=== PATIENT | female | born 1960 | race Caucasian/White ===

== ENCOUNTER 2016-12-11 08:55 | Emergency (ER) | payer OTHER ==
[2016-12-11 09:00] VITALS: RESP 18
--- NOTE | 2016-12-11 10:28 | XR ---
EXAMINATION TYPE: XR humerus LT DATE OF EXAM: 12/11/2016 CLINICAL HISTORY: Fall injury last night with pain and limited range of motion. TECHNIQUE: Two views of the left humerus are obtained. COMPARISON: None. FINDINGS: There is acute comminuted displaced fracture proximal diaphysis of left humerus. Distal fr acture fragment is slightly impacted and dorsally angulated. There is small fragment medially at frac ture site. The left shoulder and elbow joints appear nondislocated. Mild subcutaneous edema at fractu re site is noted. IMPRESSION: There is acute comminuted displaced fracture proximal diaphysis of left humerus. (Initial encounter closed type post traumatic fracture)
--- NOTE | 2016-12-11 11:01 | ED ---
General Adult HPI - General Chief complaint: Fall Stated complaint: left arm injury from fall Time Seen by Provider: 12/11/16 09:10 Source: patient, RN notes reviewed Mode of arrival: wheelchair Limitations: no limitations - History of Present Illness Initial comments: Patient 56-year-old female who presents emergency room today with a chief complaint of fall that occurred yesterday. She states she tripped over the dog. Patient does admit to increased pain to the left humerus. She denies any other complaints or associated symptoms. Patient denies any recent fever, chills , shortness of breath, chest pain, back pain, abdominal pain, nausea or vomiting , numbness or tingling, dysuria or hematuria, constipation or diarrhea, headaches or visual changes, or any other complaints. - Related Data Home Medications Medication Instructions Recorded Confirmed Biotin 5 mg PO DAILY 12/11/16 12/11/16 Cetirizine HCl [Zyrtec] 10 mg PO DAILY 12/11/16 12/11/16 Cyanocobalamin [Vitamin B-12] 500 mcg PO DAILY 12/11/16 12/11/16 Ezetimibe/Simvastatin [Vytorin 1 tab PO HS 12/11/16 12/11/16 10-20 mg Tablet] Fluticasone Nasal [place] [Flonase 1 spr EA NOSTRIL DAILY 12/11/16 12/11/16 Nasal [place]] Liothyronine Sodium 25 mcg PO DAILY 12/11/16 12/11/16 Liothyronine Sodium 50 mcg PO DAILY 12/11/16 12/11/16 Multivitamins, Thera [Multivitamin 1 tab PO DAILY 12/11/16 12/11/16 (formulary)] Omeprazole 20 mg PO DAILY PRN 12/11/16 12/11/16 Pregabalin [Lyrica] 75 mg PO DAILY 12/11/16 12/11/16 Previous Rx's Medication Instructions Recorded Acetaminophen-Codeine 300-30mg 1 each PO Q6H PRN #20 tablet 12/11/16 [Tylenol #3] Allergies Allergy/AdvReac Type Severity Reaction Status Date / Time cat dander Allergy Rash/Hives Verified 12/11/16 09:00 Review of Systems ROS Statement: Those systems with pertinent positive or pertinent negative responses have been documented in the HPI. ROS Other: All systems not noted in ROS Statement are negative. Past Medical History Past Medical History: Hyperlipidemia, Osteoarthritis (OA) History of Any Multi-Drug Resistant Organisms: None Reported Past Surgical History: Section, Joint Replacement, Orthopedic Surgery, Tonsillectomy Additional Past Surgical History / Comment(s): right shoulder, left hip replacement Past Psychological History: No Psychological Hx Reported Smoking Status: Former smoker Past Alcohol Use History: Occasional Past Drug Use History: None Reported General Exam - General Exam Comments Initial Comments: General: The patient is awake and alert, in no distress, and does not appear acutely ill. Neck: The neck is supple, there is no tenderness or JVD. Cardiovascular: There is a regular rate and rhythm. No murmur, rub or gallop is appreciated. Respiratory: Lungs are clear to auscultation, respirations are non-labored, breath sounds are equal. No wheezes, stridor, rales, or rhonchi. Musculoskeletal: Patient does have tenderness over the proximal humerus. Sensations are intact with pulses equal bilaterally 2+. Strength 5/5 in the left wrist and hand. Neurological: A&O x 3. CN II-XII intact, There are no obvious motor or sensory deficits. Coordination appears grossly intact. Speech is normal. Skin: Skin is warm and dry and no rashes or lesions are noted. Psychiatric: Normal mood and affect. Limitations: no limitations Course Vital Signs 12/11/16 08:56 Temperature 98.0 F Pulse Rate 105 H Respiratory 18 Rate Blood Pressure 128/70 O2 Sat by Pulse 97 Oximetry Medical Decision Making - Medical Decision Making Case discussed with Dr Snell. Review does show proximal humerus fracture. Results were discussed with the patient. She is placed in an arm sling here in the emergency room complaining medication go home with. Patient does appear to the emergency room as unable to take any narcotics she did take ibuprofen prior to arrival. She'll be given a prescription for Tylenol with codeine as she states Dema causes her itching. Patient is advised follow-up with her orthopedic doctor or to return to emergency room if any symptoms increase or worsen. She states understanding and is in agreement. Disposition Clinical Impression: Humerus fracture Disposition: HOME SELF-CARE Condition: Good Instructions: Arm Fracture in Adults (ED) Additional Instructions: Please use arm sling and follow-up with orthopedic doctor next 1-2 days. Please return to emergency room if there is any increase or worsening symptoms as discussed. Prescriptions: Acetaminophen-Codeine 300-30mg [Tylenol #3] 1 each PO Q6H PRN #20 tablet PRN Reason: Pain Referrals: Nonstaff,Physician [Primary Care Provider] - 1-2 days Time of Disposition: 11:00
[2016-12-11 11:13] VITALS: BP 154/83; PULSE 100; TEMP 97.6
== END 2016-12-11 11:13 | disposition home or self-care (01) ==
LOC: EC 08:55
DX: S42.352A Displaced comminuted fracture of shaft of humerus, left arm, initial encounter for closed fracture (principal); E78.5 Hyperlipidemia, unspecified; Z91.09 Other allergy status, other than to drugs and biological substances; Z79.899 Other long term (current) drug therapy; Z87.891 Personal history of nicotine dependence; W18.31XA Fall on same level due to stepping on an object, initial encounter
CPT/HCPCS: 99283

== ENCOUNTER 2023-12-15 18:41 | Emergency (ER) | payer OTHER ==
[2023-12-15 18:57] VITALS: RESP 18; TEMP 99.2
--- NOTE | 2023-12-15 18:57 | ED ---
Lower Extremity Injury HPI - General Chief Complaint: Extremity Injury, Lower Stated Complaint: Poss Hip Dislocation Time Seen by Provider: 12/15/23 18:43 Source: patient, EMS, RN notes reviewed, old records reviewed Mode of arrival: EMS Limitations: no limitations - History of Present Illness Initial Comments: This is a 63-year-old female to ER with severe left hip pain recent left hip replacement surgery and revision. Patient bent over today and felt a pop in her left hip and has since been unable to walk with severe pain of the left hip brought in by EMS MD Complaint: hip injury, fall -: hour(s) Injury: Hip: Left, Pelvis: Left, Thigh: Left Type of Injury: blunt, hyperextension Place: home Severity: severe Severity scale (1-10): 10 Worsens With: nothing Context: other (0) Other Symptoms: other (0) Associated Symptoms: other (0) Treatments Prior to Arrival: other (0) - Related Data Home Medications Medication Instructions Recorded Confirmed Biotin 5 mg PO DAILY 12/11/16 12/11/16 Cetirizine HCl [Zyrtec] 10 mg PO DAILY 12/11/16 12/11/16 Cyanocobalamin [Vitamin B-12] 500 mcg PO DAILY 12/11/16 12/11/16 Ezetimibe/Simvastatin [Vytorin 1 tab PO HS 12/11/16 12/11/16 10-20 mg Tablet] Fluticasone Nasal [place] [Flonase 1 spr EA NOSTRIL DAILY 12/11/16 12/11/16 Nasal [place]] Liothyronine Sodium 25 mcg PO DAILY 12/11/16 12/11/16 Liothyronine Sodium 50 mcg PO DAILY 12/11/16 12/11/16 Multivitamins, Thera [Multivitamin 1 tab PO DAILY 12/11/16 12/11/16 (formulary)] Omeprazole 20 mg PO DAILY PRN 12/11/16 12/11/16 Pregabalin [Lyrica] 75 mg PO DAILY 12/11/16 12/11/16 Previous Rx's Medication Instructions Recorded Acetaminophen-Codeine 300-30mg 1 each PO Q6H PRN #20 tablet 12/11/16 [Tylenol #3] Allergies Allergy/AdvReac Type Severity Reaction Status Date / Time cat dander Allergy Rash/Hives Verified 12/11/16 09:00 Review of Systems ROS Statement: Those systems with pertinent positive or pertinent negative responses have been documented in the HPI. ROS Other: All systems not noted in ROS Statement are negative. Past Medical History Past Medical History: Hyperlipidemia, Osteoarthritis (OA) History of Any Multi-Drug Resistant Organisms: None Reported Past Surgical History: Section, Joint Replacement, Orthopedic Surgery, Tonsillectomy Additional Past Surgical History / Comment(s): right shoulder, left hip replacement Past Psychological History: No Psychological Hx Reported Past Alcohol Use History: Occasional Past Drug Use History: None Reported General Exam Limitations: no limitations General appearance: alert, in no apparent distress Head exam: Present: atraumatic, normocephalic, normal inspection Eye exam: Present: normal appearance, PERRL, EOMI. Absent: scleral icterus, conjunctival injection, periorbital swelling ENT exam: Present: normal exam, mucous membranes moist Neck exam: Present: normal inspection. Absent: tenderness, meningismus, lymphadenopathy Respiratory exam: Present: normal lung sounds bilaterally. Absent: respiratory distress, wheezes, rales, rhonchi, stridor Cardiovascular Exam: Present: regular rate, normal rhythm, normal heart sounds. Absent: systolic murmur, diastolic murmur, rubs, gallop, clicks GI/Abdominal exam: Present: soft, normal bowel sounds. Absent: distended, tenderness, guarding, rebound, rigid Extremities exam: Present: normal inspection, full ROM, normal capillary refill. Absent: tenderness, pedal edema, joint swelling, calf tenderness Back exam: Present: normal inspection Neurological exam: Present: alert, oriented X3, CN II-XII intact Psychiatric exam: Present: normal affect, normal mood Skin exam: Present: warm, dry, intact, normal color. Absent: rash Course Vital Signs 12/15/23 12/15/23 12/15/23 18:48 19:26 21:12 Temperature 99.2 F Pulse Rate 118 H 120 H 108 H Respiratory 18 18 20 Rate Blood Pressure 154/74 149/71 179/98 O2 Sat by Pulse 95 98 100 Oximetry 12/15/23 12/15/23 12/15/23 21:15 21:20 21:25 Temperature Pulse Rate 106 H 103 H 108 H Respiratory 12 10 L 16 Rate Blood Pressure 112/85 111/65 129/74 O2 Sat by Pulse 100 99 100 Oximetry 12/15/23 21:30 Temperature Pulse Rate 107 H Respiratory 18 Rate Blood Pressure 146/80 O2 Sat by Pulse 99 Oximetry - Reevaluation(s) Reevaluation #1: 12/15/23 21:56 Medical records reviewed Reevaluation #2: 12/15/23 21:56 Patient symptoms dramatically improved Reevaluation #3: 12/15/23 21:56 Patient informed of results and questions answered Reevaluation #4: Was pt. sent in by a medical professional or institution (, [facility], [facility], urgent care, hospital, or [place] [facility] facility...) When possible be specific @ -no Did you speak to anyone other than the patient for history (EMS, parent, family, police, friend...)? What history was obtained from this source @ -no Did you review nursing and triage notes (agree or disagree)? Why? @ -agree Are old charts reviewed (outside hosp., previous admission, EMS record, old EKG, old radiological studies, urgent care reports/EKG's, [place] [facility] facility records)? Report findings @ -yes Differential Diagnosis (chest pain, altered mental status, abdominal pain women, abdominal pain men, vaginal bleeding, weakness, fever, dyspnea, syncope, headache, dizziness, GI bleed, back pain, seizure, CVA, palpatations, mental health, musculoskeletal)? @ -prior EKG interpreted by me (3pts min.). @ -no X-rays interpreted by me (1pt min.). @ -yes initial left hip dislocation with positive relocation CT interpreted by me (1pt min.). @ -no U/S interpreted by me (1pt. min.). @ -no What testing was considered but not performed or refused? (CT, X-rays, U/S, labs)? Why? @ -none What meds were considered but not given or refused? Why? @ -none Did you discuss the management of the patient with other professionals (professionals i.e. [facility] Arias, [employer], lab, RT, psych nurse, manager social services, featherer, teacher, radiation officer, bilingual case manager)? Give summary @ -no Was smoking cessation discussed for >3mins.? @ -no Was critical care preformed (if so, how long)? @ -no Were there social determinants of health that impacted care today? How? (Homelessness, low income, unemployed, alcoholism, drug addiction, transportation, low edu. Level, literacy, decrease access to med. care, longterm, rehab)? @ -none Was there de-escalation of care discussed even if they declined (Discuss DNR or withdrawal of care, Hospice)? DNR status @ -no What co-morbidities impacted this encounter? (DM, HTN, Smoking, COPD, CAD, Cancer, CVA, ARF, Chemo, Hep., AIDS, mental health diagnosis, sleep apnea, morbid obesity)? @ -none Was patient admitted / discharged? Hospital course, mention meds given and route, prescriptions, significant lab abnormalities, going to OR and other pertinent info. @ - 63 female with left hip prosthesis dislocation, relocated here in the ER under conscious sedation and patient can be discharged home Discharge Undiagnosed new problem with uncertain prognosis? @ -no Drug Therapy requiring intensive monitoring for toxicity (Heparin, Nitro, Insulin, Cardizem)? @ -no Were any procedures done? @ -Conscious sedation and left hip reduction Diagnosis/symptom? @ -Left hip prosthetic dislocation Acute, or Chronic, or Acute on Chronic? @ -Acute Uncomplicated (without systemic symptoms) or Complicated (systemic symptoms)? @ -Complicated Side effects of treatment? @ -no Exacerbation, Progression, or Severe Exacerbation? @ -exacerbation Poses a threat to life or bodily function? How? (Chest pain, [place], [place], pneumonia, PE, COPD, DKA, ARF, appy, cholecystitis, CVA, Diverticulitis, Homicidal, Suicidal, threat to staff... and all critical care pts) @ -yes Procedures - Orthopedic Joint Reduction Joint #1 Consent Obtained: verbal consent Side: left Joint Reduction Location: hip Analgesia: procedural sedation Technique Used: traction/counter-traction Post-Reduction Neuro Exam: intact Post-Reduction Vascular Exam: intact Post Reduction X-Ray Obtained: Yes Post Reduction X-Ray Results: reduced Splint Applied: Yes Patient Tolerated Procedure: well - Procedural Sedation *Procedural Sedation Start Time: 19:30 *Procedural Sedation Stop Time: 20:00 *Risks,benefits, and alternative therapies discussed?: Yes *Patient indicates understanding of risk/benefit discussion?: Yes *Indications: fracture/dislocation reduction *Previous Adverse Reaction to Anesthesia/Sedation?: No * Testing Complete?: Yes Reason Test Not Complete:: Age > 60 *ASA Class: III *Mallampati Airway Score: 3 Preparation: monitor car operator applied, pulse oximeter, capnometry used IV Propofol Dose (mgs): 200 Complications: none Interventions: oxygen applied Patient Tolerated Procedure: well Medical Decision Making - Medical Decision Making 63 female with left hip prosthesis dislocation, relocated here in the ER under conscious sedation and patient can be discharged home - Radiology Data Radiology results: report reviewed (X-ray shows left hip dislocation), image reviewed Disposition Clinical Impression: Hip dislocation, left, Dislocation of hip joint prosthesis Disposition: HOME SELF-CARE Condition: Good Instructions (If sedation given, give patient instructions): Moderate Sedation (ED), Hip Dislocation (ED) Is patient prescribed a controlled substance at d/c from ED?: No Referrals: Nonstaff,Physician [Primary Care Provider] - 1-2 days Time of Disposition: 22:00
[2023-12-15] MEDS: HYDROmorphone 1 MG/ML 1 ML SYRINGE IVP STA (19:29)
[2023-12-15] MEDS: SODIUM CHLORIDE 0.9% 1,000 ML IV STA (19:34)
--- NOTE | 2023-12-15 19:58 | XR ---
EXAMINATION TYPE: XR Hip LT and AP Pelvis DATE OF EXAM: 12/15/2023 COMPARISON: NONE HISTORY: Pain TECHNIQUE: A single AP view of the pelvis is obtained. Two views of the left hip are obtained. FINDINGS: There is a posterior dislocation of the femoral component of the hip prosthesis relative t o the acetabular component. Diffuse osteopenia. No definite acute fracture. Arthropathy of the right hip. Degenerative changes spine. Benign-appearing vascular calcifications. IMPRESSION: 1. Posterior dislocation of the femoral component of the prostheses relative to the acetabulum. 2. No definite acute fracture.
[2023-12-15] MEDS: PROPOFOL 10 MG/ML 20 ML VIAL IV ONE (21:12)
[2023-12-15] MEDS: SODIUM CHLORIDE 0.9% 1,000 ML IV ONE (21:36)
--- NOTE | 2023-12-15 21:48 | XR ---
EXAMINATION TYPE: XR Hip Limited LT DATE OF EXAM: 12/15/2023 COMPARISON: NONE HISTORY: post reduction TECHNIQUE: One views submitted FINDINGS: Post reduction view demonstrates anatomic alignment. Diffuse osteopenia. Degenerative change of the s pine. These a final lung iliac crest. SI joint arthropathy IMPRESSION: 1. Anatomic alignment post reduction.
[2023-12-16 04:53] VITALS: BP 146/80; PULSE 107
== END 2023-12-15 22:30 | disposition home or self-care (01) ==
LOC: EC 18:41
DX: S73.005A Unspecified dislocation of left hip, initial encounter (principal); Z88.8 Allergy status to other drugs, medicaments and biological substances; X58.XXXA Exposure to other specified factors, initial encounter
CPT/HCPCS: 73501; 73502; 99284; 96374; 96361 ×2; 99152; 99153; 27250; J1170; J2704; 99151